=== PATIENT | female | born 1980 | race African-American/Black ===

== ENCOUNTER 2021-06-30 21:33 | Emergency (ER) | payer SELFPAY ==
[~2021-06-30] VITALS: Ht 175.3 cm; Wt 102.5 kg
--- NOTE | 2021-06-30 21:58 | NUR ---
BIBS C/O CHEST DISCOMFORT WITH PALPITATIONS X 2 HOURS. PATIENT ALERT AND ORIENTED X3. AMBULATORY WITH NON LABORED BREATHING. PATIENT IN BED 09 ON MONITOR AND POX AWAITING MD ALARCON.
--- NOTE | 2021-06-30 21:59 | NUR ---
EMT @ BEDSIDE FOR EKG
[2021-06-30] MEDS ORDERED: IBUPROFEN 400 MG TABLET PO ONE (22:30)
[2021-06-30] MEDS ORDERED: IBUPROFEN 400 MG TABLET ONE (22:39)
[2021-06-30 22:58] VITALS: BP 126/78
--- NOTE | 2021-06-30 22:58 | NUR ---
Patient discharged to home in stable condition. Written and verbal after care instructions given. Patient verbalizes understanding of instruction.
== END 2021-06-30 22:58 | disposition home or self-care (01) ==
LOC: ER 21:39
DX: R07.89 Other chest pain (principal); Z88.0 Allergy status to penicillin
CPT/HCPCS: 71045-TC